=== PATIENT | female | born 1975 | race Hispanic/Latino ===

== ENCOUNTER 2017-04-22 18:16 | Emergency (ER) | payer SELFPAY ==
[2017-04-22 18:31] VITALS: RESP 18; TEMP 98
--- NOTE | 2017-04-22 19:25 | C.PDOC ---
History Of Present Illness 42 year old female with no past medical Hx presents to the ER with a complaint of right upper back and right chest pain that began a few days ago that worsens with movement. Denies fever, nausea, vomiting, cough or other complaints. Time Seen by Provider: 04/22/17 19:05 Chief Complaint (Nursing): Back Pain History Per: Patient History/Exam Limitations: no limitations Onset/Duration Of Symptoms: Days Current Symptoms Are (Timing): Still Present Quality Of Discomfort: Unable To Describe Previous Symptoms: None Associated Symptoms: None Exacerbating Factor(s): Movement Recent travel outside of the [place]: No Past Medical History Reviewed: Historical Data, Nursing Documentation, Vital Signs Vital Signs: Last Vital Signs Temp 98 F 04/22/17 18:27 Pulse 75 04/22/17 20:40 Resp 18 04/22/17 20:40 BP 116/72 04/22/17 20:40 Pulse Ox 96 04/22/17 20:40 - Medical History PMH: No Chronic Diseases Surgical History: No Surg Hx Family History: States: Unknown Family Hx - Social History Hx Alcohol Use: No Hx Substance Use: No - Immunization History Hx Tetanus Toxoid Vaccination: No Hx Influenza Vaccination: Yes Hx Pneumococcal Vaccination: No Review Of Systems Constitutional: Negative for: Fever, Chills Respiratory: Negative for: Cough Gastrointestinal: Negative for: Nausea, Vomiting Musculoskeletal: Positive for: Back Pain, Other (Chest wall pain) Physical Exam - Physical Exam Appears: Non-toxic, No Acute Distress Skin: Normal Color, Warm, Dry Head: Atraumatic, Normacephalic Eye(s): bilateral: Normal Inspection Oral Mucosa: Moist Neck: Normal, No Midline Cervical Tenderness, No Paracervical Tenderness, Supple Chest: Symmetrical, Tenderness (right sided) Cardiovascular: Rhythm Regular Respiratory: Normal Breath Sounds, No Rales, No Rhonchi, No Wheezing Gastrointestinal/Abdominal: Soft, No Tenderness Back: No CVA Tenderness, No Vertebral Tenderness, Paraspinal Tenderness (right sided) Extremity: Normal ROM (x4) Neurological/Psych: Oriented x3, Normal Speech, Other (no focal deficits) ED Course And Treatment - Laboratory Results Result Diagrams: 04/22/17 19:27 04/22/17 19:27 ECG: Interpreted By Me, Viewed By Me ECG Rhythm: Sinus Rhythm ECG Interpretation: Normal Interpretation Of ECG: no ST/T wave changes. PERC negative. Rate From EC O2 Sat by Pulse Oximetry: 99 (room air) Pulse Ox Interpretation: Normal Medical Decision Making Medical Decision Making: atypical cp, worse with movement and palpation EKG, blood work, CXR, and urinalysis ordered. Tylenol administered. cxr neg as read by me. pt with atypical pain, improved in er. perc neg. pt states feels better. heart score low. advise outpt f/u and return precautions Disposition - Disposition Referrals: [facility] [Outside] [facility] [Outside] [email or web address] [Outside] Flip Osuna MD [Staff Provider] - Disposition: HOME/ ROUTINE Disposition Time: 08:30 Condition: STABLE Additional Instructions: please follow up with your doctor/clinic and specialist. return to er with worsening symptoms or concerns. Instructions: Chest Pain (ED), Back Pain (ED) Forms: [employer] (Citizen Of [place]) Print Language: KOREAN - Clinical Impression Clinical Impression: Chest pain - Scribe Statement The provider has reviewed the documentation as recorded by the Scribjose juan Daugherty All medical record entries made by the Scribe were at my direction and personally dictated by me. I have reviewed the chart and agree that the record accurately reflects my personal performance of the history, physical exam, medical decision making, and the department course for this patient. I have also personally directed, reviewed, and agree with the discharge instructions and disposition.
[2017-04-22 19:31] LABS: BASO # 0.1 K/uL (0.0-0.2); BASO % 0.6 % (0.0-2.0); EOS # 0.2 K/uL (0.0-0.7); EOS % 1.7 % (0.0-4.0); HEMATOCRIT 34.5 % (34.0-47.0); LYMPH # 2.2 K/uL (1.0-4.3); LYMPH % 23.1 % (20.0-40.0); MEAN CELL VOLUME 84.7 fL (81.0-99.0); MEAN CORPUSCULAR HEMOGLOBIN 28.8 pg (27.0-31.0); MONO # 0.5 K/uL (0.0-0.8); MONO % 5.1 % (0.0-10.0); RED CELL DISTRIBUTION WIDTH 14.1 % (11.5-14.5); WHITE BLOOD COUNT 9.7 K/uL (4.8-10.8)
[2017-04-22 19:38] LABS: INR 1.1
[2017-04-22 19:53] LABS: ALB/GLOB RATIO 1.2 (1.0-2.1); ALKALINE PHOSPHATASE 73 U/L (38-126); ALT/SGPT 39 U/L (9-52); AST/SGOT 21 U/L (14-36); BILIRUBIN,TOTAL 0.3 mg/dL (0.2-1.3); BLOOD UREA NITROGEN 14 mg/dL (7-17); CALCIUM 8.5 mg/dl (8.6-10.4); CARBON DIOXIDE 26 mmol/L (22-30); CHLORIDE 101 mmol/L (98-107); GFR AFRICAN-AMERICAN > 60; GLUCOSE,RANDOM 81 mg/dL (65-105); POTASSIUM 3.7 mmol/L (3.6-5.2); SODIUM 134 mmol/L (132-148); TOTAL PROTEIN 7.5 g/dL (6.3-8.3)
[2017-04-22 20:43] VITALS: BP 116/72; PULSE 75
[2017-04-22 21:03] VITALS: O2SAT 99
--- NOTE | 2017-04-23 13:51 | RAD ---
HISTORY: chest pain Open COMPARISON: No prior. TECHNIQUE: Chest PA and lateral FINDINGS: LUNGS: Minor bibasilar atelectasis. PLEURA: No significant pleural effusion identified. No pneumothorax apparent. CARDIOVASCULAR: Normal. OSSEOUS STRUCTURES: No significant abnormalities. VISUALIZED UPPER ABDOMEN: Normal. OTHER FINDINGS: None. IMPRESSION: No active disease.
== END 2017-04-22 20:43 | disposition home or self-care (01) ==
LOC: C.ER 18:16
DX: R07.9 Chest pain, unspecified (principal)